=== PATIENT | female | born 1990 | race Caucasian/White ===

== ENCOUNTER → 2019-11-16 | Outpatient (CLI) | payer OTHER | END | disposition home or self-care (01) | LOC: STAR 08:12 | PROVIDERS: ATTEND Obstetrics & Gynecology | DX: Z01.812 Encounter for preprocedural laboratory examination (principal); Z20.828 Contact with and (suspected) exposure to other viral communicable diseases | CPT/HCPCS: 36415; 87635 ==

== ENCOUNTER 2019-11-17 13:29 | Outpatient (CLI) | payer OTHER ==
[~2019-11-17] VITALS: Ht 170.2 cm; Wt 115.9 kg
[2019-11-17 13:43] VITALS: BP 158/93
== END 2019-11-17 15:00 | disposition home or self-care (01) ==
LOC: LDOP 13:29
PROVIDERS: ATTEND Obstetrics & Gynecology
DX: O26.893 Other specified pregnancy related conditions, third trimester (principal); R10.9 Unspecified abdominal pain; Z3A.39 39 weeks gestation of pregnancy
CPT/HCPCS: 59025; 84112